=== PATIENT | male | born 1950 | race Caucasian/White ===

== ENCOUNTER 2021-12-01 05:41 | Inpatient (IN) ==
--- NOTE | 2021-11-11 13:13 | PAT Medication Instructions ---
Medication Instructions Date of Service November 11, 2021 Home Medications acetaminophen 500 mg capsule 1,000 mg PO UD PRN cholecalciferol (vitamin D3) 125 mcg (5,000 unit) tablet (Vitamin D3) 125 mcg PO QAM cyanocobalamin (vitamin B-12) 500 mcg tablet (Vitamin B-12) 500 mcg PO QAM diltiazem HCl 180 mg capsule,24 hr,extended release 180 mg PO BID docusate sodium 100 mg capsule (Stool Softener) 100 mg PO BID hydrochlorothiazide 25 mg tablet 25 mg PO QAM lisinopril 5 mg tablet 5 mg PO BID metoprolol tartrate 50 mg tablet 50 mg PO BID naproxen sodium 220 mg capsule (Aleve) 220 mg PO UD PRN vitamin E 400 unit capsule 400 unit PO QAM ASK your surgeon for instructions naproxen sodium 220 mg capsule (Aleve) 220 mg PO UD PRN STOP taking 2 weeks before surgery (or as soon as possible if surgery is within 2 weeks) vitamin E 400 unit capsule 400 unit PO QAM DO NOT take the morning of surgery cholecalciferol (vitamin D3) 125 mcg (5,000 unit) tablet (Vitamin D3) 125 mcg PO QAM cyanocobalamin (vitamin B-12) 500 mcg tablet (Vitamin B-12) 500 mcg PO QAM docusate sodium 100 mg capsule (Stool Softener) 100 mg PO BID hydrochlorothiazide 25 mg tablet 25 mg PO QAM lisinopril 5 mg tablet 5 mg PO BID Take morning of surgery With a small sip of water, OTHERWISE NOTHING TO EAT OR DRINK AFTER MIDNIGHT: acetaminophen 500 mg capsule 1,000 mg PO UD PRN (okay to take up to 4 hours prior to surgery if needed) diltiazem HCl 180 mg capsule,24 hr,extended release 180 mg PO BID metoprolol tartrate 50 mg tablet 50 mg PO BID Take evening before surgery acetaminophen 500 mg capsule 1,000 mg PO UD PRN (if needed) diltiazem HCl 180 mg capsule,24 hr,extended release 180 mg PO BID docusate sodium 100 mg capsule (Stool Softener) 100 mg PO BID lisinopril 5 mg tablet 5 mg PO BID metoprolol tartrate 50 mg tablet 50 mg PO BID Other Notes If you have any questions please call us at [phone] or [phone] or or [phone]
--- NOTE | 2021-11-17 13:20 | Anesthesiology Consultation ---
Date of Service November 17, 2021 Assessment & Plan (1) Encounter for pre-operative examination: COVID screening: Per assessment on 11/17: No known COVID-19 positive contacts or current COVID-19 related symptoms. Travel screen negative. Patient vaccinated. Surgeon arranging preop COVID testing. Awaiting results. Chart Review Chart Review: Acceptable Risk for Surgery and Patient seen in Pre Admission Testing Teaching & Discussion Pre-Anesthesia Teaching/Discussion Notes: Instructed NPO after midnight before surgery,except medications with 15 cc of water. Medication instructions pro vided according to the PAT guidelines. History Surgery Operation Date: 12/01/21 07:45 Proposed Procedures p L2-L5 Decompression Fusion, Spinal Cord Monitoring - Abdi Wayne DO Height/Weight Height: 5 ft 9 in Weight: 104.4 kg Allergies Allergy/AdvReac Type Severity Reaction Status Date / Time No Known Allergies Allergy Verified 11/04/21 10:36 Medications Home Medications Medication Instructions Recorded Confirmed Last Taken acetaminophen 500 mg capsule 1,000 mg PO UD PRN 11/04/21 11/04/21 Unknown cholecalciferol (vitamin D3) 125 125 mcg PO QAM 11/04/21 11/04/21 Unknown mcg (5,000 unit) tablet (Vitamin D3) cyanocobalamin (vitamin B-12) 500 500 mcg PO QAM 11/04/21 11/04/21 Unknown mcg tablet (Vitamin B-12) diltiazem HCl 180 mg capsule,24 180 mg PO BID 11/04/21 11/04/21 Unknown hr,extended release docusate sodium 100 mg capsule 100 mg PO BID 11/04/21 11/04/21 Unknown (Stool Softener) hydrochlorothiazide 25 mg tablet 25 mg PO QAM 11/04/21 11/04/21 Unknown lisinopril 5 mg tablet 5 mg PO BID 11/04/21 11/04/21 Unknown metoprolol tartrate 50 mg tablet 50 mg PO BID 11/04/21 11/04/21 Unknown naproxen sodium 220 mg capsule 220 mg PO UD PRN 11/04/21 11/04/21 Unknown (Aleve) vitamin E 400 unit capsule 400 unit PO QAM 11/04/21 11/04/21 Unknown Past Medical History Medical History Aortic aneurysm 4.3cm stable ascending aorta aneurysm per 09/04/21 CTS COPD (chronic obstructive pulmonary disease) Stable History of COVID-19 07/2021 > resolved History of prostate cancer 3+ years ago, hx prostatectomy/radiation/lupron HTN (hypertension) Multiple sclerosis Dx 20 years ago "Mild" > affects Left leg with weakness, fatigue Scoliosis Spinal stenosis Exercise / Class Metabolic Activity II 4-5 Yardwork/Stairs/Walk up hill Past Surgical History Surgical History History of appendectomy History of arthroscopy of right knee History of colonoscopy History of neck surgery BENIGN TUMOR REMOVED History of prostatectomy History of tonsillectomy Past Anesthesia History No Hx of Anesthesia Complications and No Family Hx of Anesthesia Complications History of PONV No Hx of PONV and Hx of Motion Sickness Social History Smoking Status: Current every day smoker tobacco type: cigarettes Smoking cigarettes per day: < 9 cigs/day (trying to quit) Do You Dip or Chew Tobacco: No Hx Alcohol Use: Yes Alcohol type: wine and hard liquor alcohol intake frequency: a few times a month substance use type: does not use Review of Systems Patient denies chest pain, shortness of breath, dyspnea on exertion, fever, chills, cough, wheezing, palpitations. Physical Exam Vital Signs VITALS BP 139/80 P 60 TEMP 98.2 SP02 96%RA RESP 18 PHYSICAL Full cervical extension range of motion. Full TMJ range of motion. TMD 3 finger breaths Mallampati Score 3 Dentition: missing molars Lungs: clear throughout to auscultation Cardiac: regular rate and rhythm, no murmurs noted Spine: normal Carotid arteries: negative bruit Extremities: no edema Lab Results Anesthesia Preop Results Results Anesthesia Widget: WBC 7.72 K/uL (4.8-10.8) 11/17/21 Hgb 15.6 g/dL (14.0-18.0) 11/17/21 Hct 46.4 % (42-52) 11/17/21 Plt 199 K/uL (130-400) 11/17/21 Na 144 mmol/L (136-145) 11/17/21 K 4.0 mmol/L (3.5-5.1) 11/17/21 Cl 106 mmol/L (98-107) 11/17/21 CO2 31 mmol/L (21-32) 11/17/21 BUN 24 mg/dl (6-23) H 11/17/21 Creat 1.04 mg/dl (0.6-1.4) 11/17/21 Glucose Level 99 mg/dl (70-99(Fasting)) 11/17/21 PT 10.6 Seconds (9.0-12.0) 11/17/21 PTT 27.6 Seconds (21.0-31.0) 11/17/21 INR 1.0 (0.9-1.1) 11/17/21 Urine Color Yellow 11/17/21 Urine Appearance Clear (Clear) 11/17/21 Urine pH 7.0 (4.5-7.5) 11/17/21 Urine Specific Erin 1.023 (1.000-1.030) 11/17/21 Urine Protein Negative (Negative) 11/17/21 Urine Glucose (UA) Negative (Negative) 11/17/21 Urine Ketones Negative (Negative) 11/17/21 Urine Blood Negative (Negative) 11/17/21 Urine Nitrite Negative (Negative) 11/17/21 Urine Bilirubin Negative (Negative) 11/17/21 Urine Urobilinogen Negative (Negative) 11/17/21 Urine Leukocyte Esterase Negative (Negative) 11/17/21 Blood Type O Positive 11/17/21 Antibody Screen NEGATIVE 11/17/21 Testing Electrocardiogram Date: 11/17/21 NSR at 62bpm. Low voltage QRS. NS STA. Chest X-Ray Date: 11/17/21 FINDINGS: The cardiomediastinal and hilar silhouettes are within normal limits. Subcentimeter calcified granuloma of the left lung apex. No pneumothorax, pleural effusion, airspace consolidation or overt pulmonary edema. Mild linear scarring versus atelectasis of the lung bases. The lungs are mildly hyperinflated. Degenerative changes of the shoulders and spine. IMPRESSION: No acute process. Other Testing CT Thorax (09/04/21) 4.3 cm ascending Aorta unchanged from the previous exam. 6 mm calcified granuloma in the left upper lobe unchanged. 2 low-density lesions in the left lobe of the liver are unchanged previous exam.
[2021-12-01] MEDS ORDERED: GABAPENTIN 300 MG CAP PO SCH (06:00)
[2021-12-01] MEDS ORDERED: LR 15ML/HR IV SCH (06:00)
[2021-12-01] MEDS ORDERED: ACETAMINOPHEN 500 MG TAB PO SCH (06:00)
[2021-12-01] MEDS ORDERED: ceFAZolin 2000MG 2,000 MG/15 ML SYR IV SCH ×2 (06:00→17:15)
[2021-12-01] MEDS ORDERED: CeleBREX 200 MG CAP PO SCH (06:00)
[2021-12-01] MEDS ORDERED: MIDAZOLAM HCL 1 MG/ML 2ML VIAL ONE (06:54)
[2021-12-01] MEDS ORDERED: fentaNYL citrate 100 MCG/2 ML VIAL ONE (06:54)
[2021-12-01] MEDS ORDERED: KETAMINE 50 MG/5 ML SYRINGE ONE (06:54)
[2021-12-01] MEDS ORDERED: HYDROmorphone INJ 2 MG/ML SYR/VIAL ONE (06:55)
[2021-12-01] MEDS ORDERED: ATROPINE SULFATE 0.1 MG/ML 10ML SYR IV PRN (07:15)
[2021-12-01] MEDS ORDERED: fentaNYL citrate 100 MCG/2 ML VIAL IV PRN (07:15)
[2021-12-01] MEDS ORDERED: ONDANSETRON INJ 2 MG/ML 2 ML VIAL IV PRN ×2 (07:15→12:33)
[2021-12-01] MEDS ORDERED: ePHEDrine sulfate 50 MG/ML AMP IV PRN (07:15)
[2021-12-01] MEDS ORDERED: PROMETHAZINE HCL 6.25 MG in SODIUM CHLORIDE 0.9% 50 ML IV PRN (07:15)
[2021-12-01] MEDS ORDERED: ceFAZolin 330 MG/ML 1 GM VIAL ONE (07:29)
[2021-12-01] MEDS ORDERED: BUPIVACAINE/EPINEPHRINE 0.25% 1:200,000 30 ML VIAL ONE (07:29)
--- NOTE | 2021-12-01 07:34 | History & Physical Bridge Note ---
Date of Service December 01, 2021 History & Physical Bridge Note I have examined the patient, reviewed the History & Physical and in the interval since the performance of the History & Physical I have noted the following changes of clinical significance: no changes noted
--- NOTE | 2021-12-01 07:35 | History & Physical Report ---
Date of Service December 01, 2021 Assessment & Plan (1) Neurogenic claudication due to lumbar spinal stenosis: Plan: L2-L5 decompression and fusion History of Present Illness Chief Complaint: Back and bilateral leg pain Primary Care Provider: Rupa Goldsmith DO This is a 71-year-old male who presents with chronic persistent back and leg pain. Failing course of nonoperative care is here for surgical intervention. Allergies Allergy/AdvReac Type Severity Reaction Status Date / Time No Known Allergies Allergy Verified 12/01/21 06:23 Home Medications Medication Instructions Recorded Confirmed Type acetaminophen 500 mg capsule 1,000 mg PO UD PRN 11/04/21 12/01/21 History cholecalciferol (vitamin D3) 125 125 mcg PO QAM 11/04/21 12/01/21 History mcg (5,000 unit) tablet (Vitamin D3) cyanocobalamin (vitamin B-12) 500 500 mcg PO QAM 11/04/21 12/01/21 History mcg tablet (Vitamin B-12) diltiazem HCl 180 mg capsule,24 180 mg PO BID 11/04/21 12/01/21 History hr,extended release docusate sodium 100 mg capsule 100 mg PO BID 11/04/21 12/01/21 History (Stool Softener) hydrochlorothiazide 25 mg tablet 25 mg PO QAM 11/04/21 12/01/21 History lisinopril 5 mg tablet 5 mg PO BID 11/04/21 12/01/21 History metoprolol tartrate 50 mg tablet 50 mg PO BID 11/04/21 12/01/21 History naproxen sodium 220 mg capsule 220 mg PO UD PRN 11/04/21 12/01/21 History (Aleve) vitamin E 400 unit capsule 400 unit PO QAM 11/04/21 12/01/21 History Symbicort 160 mg INHALATION BID 12/01/21 12/01/21 History Past Med/Surg History Medical History Aortic aneurysm 4.3cm stable ascending aorta aneurysm per 09/04/21 CTS COPD (chronic obstructive pulmonary disease) Stable History of COVID-19 07/2021 > resolved History of prostate cancer 3+ years ago, hx prostatectomy/radiation/lupron HTN (hypertension) Multiple sclerosis Dx 20 years ago "Mild" > affects Left leg with weakness, fatigue Scoliosis Spinal stenosis Surgical History History of appendectomy History of arthroscopy of right knee History of colonoscopy History of neck surgery BENIGN TUMOR REMOVED History of prostatectomy History of tonsillectomy Social History (System 10/23/21 @ 09:15 by Yael Arnold) Smoking Status: Current every day smoker Cigarettes Per Day: < 9 cigs/day (trying to quit); Do You Dip or Chew Tobacco: No; Tobacco Cessation Education Requested by Patient: No Hx Alcohol Use: Yes Alcohol type: wine and hard liquor Preferred Language: Samoan Communication Ability: Effective Acid Plant Helper Required: No Beliefs That Will Affect Care: None Current Living Situation: Spouse Other Information That Helps Us Care for You: No Feels Safe at Home: Yes Assistive Devices: Glasses Physical Exam Physical Exam: Patient is alert and oriented Heart regular in rhythm Lungs clear Results & Data Results & Data ([facility]) Vital Signs (Past 12 Hours) Vital Signs Temp Pulse Resp BP Pulse Ox 12/01/21 06:28 37 C 62 18 138/85 96
[2021-12-01] MEDS ORDERED: FLOSEAL HEMOSTATIC MATRIX 10ML TOP ONE (08:22)
[2021-12-01] MEDS ORDERED: ONDANSETRON INJ 2 MG/ML 2 ML VIAL ONE (08:46)
[2021-12-01] MEDS ORDERED: GLYCOPYRROLATE 0.2 MG/ML VIAL ONE (08:46)
[2021-12-01] MEDS ORDERED: ROCURONIUM BROMIDE 10 MG/ML 5 ML VIAL IV ONE (08:46)
[2021-12-01] MEDS ORDERED: DEXAMETHASONE SOD INJ 4 MG/ML VIAL ONE (08:46)
[2021-12-01] MEDS ORDERED: SUGAMMADEX SODIUM 200 MG/2 ML VIAL IV ONE (10:10)
[2021-12-01] MEDS ORDERED: PHENYLEPHRINE 100MCG/ML 5ML SYR ONE (11:02)
[2021-12-01] MEDS ORDERED: ePHEDrine sulfate 50 MG/ML SYR ONE (11:02)
--- NOTE | 2021-12-01 11:13 | Operative Report ---
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 #2 posterior spinal fusion L2-S1. #3 placement posterior segmental instrumentation L2-S1. #4 interbody fusion L3-L4, L4-5 and L5-S1. #5 placement of Spira 12 x 26 mm cage at L3-L4, 13 x 26 mm cage at L for L5 and 13 x 26 mm cage at L5-S1. #5 placement of I factor combined with V toss in the interbody space and posterior lateral gutters. #6 placement locally harvested morselized autograft in the posterior lateral gutters. Surgeon Abdi Wayne, DO Body Former Sharyn Lee Estimated Blood Loss 800 Findings See Below The patient is 5 foot 9 inches tall weighing over 104 kg with a BMI in excess of 33. This combined with an EBL of greater than 800 cc created significant technical difficulty required deepest retractors longus instruments in order to perform his procedure this at least 50% increased operative time. Specimens None Indications This is a 71-year-old male who presents with above-mentioned diagnosis after failing since course of nonoperative care is here for surgical invention. Description of Procedure Patient was met with identified informed consent obtained. Patient was then taken to the operative suite underwent a patient placed in a prone position on the Jean Paul table on top of the Alireza frame. All bony prominences well-padded eyes inspected to ensure no external pressure placed upon them. This point the lumbar spine was prepped and draped in normal sterile fashion. Sharp dissection with the assistance of Bovie cautery performed down to and exposing the lamina and transverse processes of L to L3-L4-L5. Upon explanation of the 5 level I appreciated bilateral pars defect and gross instability the lamina. Subsequently extended the exposure to include the sacral ala bilaterally. Elected to stabilize this level. I then performed complete laminectomy of L5 L4 L3 and L2 including bilateral medial facetectomies and foraminotomies addressing severe spinal stenosis. Pedicle screws were then placed in L2 L3-L4-L5 and S1 levels bilaterally with assistance of fluoroscopy the proper sized rodo placed. By way of entrance foraminal approach on the left complete discectomy of L5-S1 was performed endplates curetted to subcortical bleeding bone and a 13 x 26 mm Spira cage with I factor tapped in position. Then proceeded to L [address] again by way of a transforaminal approach and left complete discectomy performed endplates curetted to subcortical bleeding bone and again a 13 x 26 mm spiral cage with I factor tapped into position. Lastly proceeded to L3-L4 and again by way of a transforaminal approach and left complete discectomy performed endplates curetted to subcortically bone and a 12 x 26 mm spiral cage with I factor tapped in position. Rods were then locked into final position bilaterally. The transverse processes of L2-L3 L4-5 and sacral ala burred to subcortical bleeding bone. I factor combined with V toss and locally harvested morselized autograft was then placed in the posterior gutters. 15 round JENIFER drain inserted. The incision was then closed with 1 Vicryl to fascia 2-0 Vicryl subcutaneously and 4 Monocryl for final skin closure. Steri-Strip sterile dressings placed. Patient waken taken PACU stable condition. Please note spin al cord monitoring was utilized at the procedure no changes noted. Lastly Sharyn Lee was present at the entire procedure involved the patient positioning complex portions of the surgery and final skin closure. I attest to the content of the Intraoperative Record and any orders documented therein. Any exceptions are noted below.
--- NOTE | 2021-12-01 11:26 | Fluoroscopy Report ---
FL lumbar spine 2-3V CLINICAL HISTORY: L2-L5 DECOMPRESSION/FUSION COMPARISON STUDY: None FLUOROSCOPY TIME: 52 seconds. FLUOROSCOPIC IMAGES: 3 FINDINGS: The patient is status post interpedicular screw and rodo fixation from L2 through S1. Disc s pacers are in place at L3-4, L4-5 and L5-S1. IMPRESSION: Status post internal fixation ACT 112: Negative or not required by law. Electronically signed by: Ilia Michael M.D. 12/01/2021 11:25 AM
[2021-12-01] MEDS ORDERED: ONDANSETRON 4 MG OD TAB PO PRN (12:33)
[2021-12-01] MEDS ORDERED: METOCLOPRAMIDE HCL INJ 5 MG/ML 2 ML VIAL IV PRN (12:33)
[2021-12-01] MEDS ORDERED: ACETAMINOPHEN 500 MG TAB PO PRN (12:33)
[2021-12-01] MEDS ORDERED: traMADol HCL 50 MG TABLET PO PRN (12:33)
[2021-12-01] MEDS ORDERED: diphenhydrAMINE Capsule 25 MG CAP PO PRN (12:33)
[2021-12-01] MEDS ORDERED: FAMOTIDINE 20 MG TAB PO PRN (12:33)
[2021-12-01] MEDS ORDERED: HYDROmorphone INJ 1 MG/ML SYRINGE IV PRN (12:33)
[2021-12-01] MEDS ORDERED: LORazepam 0.5 MG TAB PO PRN (12:33)
[2021-12-01] MEDS ORDERED: SOD PHOSPHATE/SOD BIPHOSPHATE ENEMA 132 ML BTL PR PRN (12:33)
[2021-12-01] MEDS ORDERED: MAGNESIUM HYDROXIDE SUSP 30 ML UDC PO PRN (12:33)
[2021-12-01] MEDS ORDERED: DO NOT ADMINISTER PNEUMOCOCCAL VACCINE PRN (12:33)
[2021-12-01] MEDS ORDERED: PROMETHAZINE HCL 12.5 MG in SODIUM CHLORIDE 0.9% 50 ML IV PRN (12:33)
[2021-12-01] MEDS ORDERED: NALOXONE HCL 0.4 MG/1 ML VIAL/CARP IV PRN (12:33)
[2021-12-01] MEDS ORDERED: ACETAMINOPHEN 1,000 MG/100 ML VIAL IV PRN (12:33)
[2021-12-01] MEDS ORDERED: DO NOT ADMINISTER FLU VACCINE PRN (12:33)
[2021-12-01] MEDS ORDERED: ALUMINUM/MAGNESIUM SUSP 30 ML UDC PO PRN (12:33)
[2021-12-01] MEDS ORDERED: LORazepam 2 MG/1 ML VIAL IV PRN (12:33)
[2021-12-01] MEDS ORDERED: bisacodyL 10 MG SUPP PR PRN (12:33)
[2021-12-01] MEDS ORDERED: hydrOXYzine HCl 25 MG TAB PO PRN (12:33)
[2021-12-01] MEDS ORDERED: ALBUT/IPRATROP 3MG/0.5MG NEB 3 ML VIAL NEB PRN (13:32)
--- NOTE | 2021-12-01 13:45 | Consultation ---
Date of Consultation December 01, 2021 Assessment & Plan (1) Neurogenic claudication due to lumbar spinal stenosis: (2) COPD (chronic obstructive pulmonary disease): (3) HTN (hypertension): This is a 71-year-old male who has significant past medical history of HTN, history of MS currently in remission, COPD, history of COVID-19, hx of prostate cancer status post prostatectomy, tobacco abuse who presents for elective lumbar procedure by Dr. Wayne. Neurogenic claudication due to lumbar spinal stenosis Status post L2-L5 lumbar decompression fusion, POD #[address] Wayne EBL 800 mL, JENIFER drain 50 mL Tolerated procedure well Pain/wound management per orthopedics Activity and therapy as directed by orthopedics Encourage incentive spirometry and wean oxygen as able Monitor hemoglobin secondary to blood loss, preoperative hemoglobin 15.6 HTN Postoperative BP 129/87 On metoprolol, diltiazem, lisinopril and HCTZ Will place hold parameters Hold HCTZ until reevaluated in a.m. COPD No acute exacerbation Continue Symbicort, and as needed DuoNeb Tobacco abuse Encourage cessation Declines nicotine patch History of prostate cancer status post surgery History of MS Diagnosed over 20 years ago Currently not receiving treatment, does not follow neurology Aortic Aneurysm 4.2cm Ascending aortic aneurysm followed by pcp DVT ppx: SCD/TEDS Dispo: per primary PCP: Rupa Goldsmith FULL CODE Pt was seen and examined in collaboration with Dr. Ramos, please see addendum Thank you for this consultation. We will follow the patient with you during their hospital stay. You can reach a member of the [facility] Hospitalist Team 01/02 via hospitalist role on tiger text. Supervising Physician Co-Signing Physician Notes Attending addendum: The patient was seen and examined in medical floor. He is a status post L2-L5 decompression fusion for neurogenic claudication due to spinal stenosis He has back pain and numbness involving that area but denies any other significant symptoms Remains hemodynamically stable On examination No apparent distress at rest but remains drowsy following surgery Hemodynamically stable Chest-clear to auscultate bilaterally Heart-S1, S2 regular. No murmur appreciated Abdomenbenign Extremitiesno edema CNSalert and awake, a little drowsy secondary to medications and surgery His preoperative labs, EKG and imaging studies reviewed He is status post L2-5 decompression fusion with medical conditions as mentioned earlier Remains stable following surgery Agree with assessment and plan as outlined above by Oneyda Ramos History of Present Illness Requesting Physician: Dr. Wayne Reason for Consultation: Postop medical management Attending Physician: Abdi Wayne DO History of Present Illness This is a 71-year-old male who has significant past medical history of HTN, history of MS currently in remission, COPD, history of COVID-19, hx of prostate cancer status post prostatectomy, tobacco abuse who presents for elective lumbar procedure by Dr. Wayne. He underwent L2-L5 lumbar decompression fusion with estimated blood loss 800 mL. He tolerated the procedure well. Prior to procedure he was experiencing significant low back pain with bilateral leg pain, right greater than left. He failed a course of nonoperative management. Postoperatively he offers no complaints, but continues to be drowsy secondary to anesthesia. He denies any fever, chills, sweats, lightheadedness, dizziness, chest pain, shortness of breath, nausea, vomiting, abdominal pain. He currently has Spence catheter in place. Patient with history of hypertension controlled on oral antihypertensives including HCTZ, lisinopril, metoprolol and diltiazem. He last took metoprolol and diltiazem this morning. He also has history of MS currently not undergoing any treatment. He states he does not follow with a neurologist regularly. He does have history of COPD secondary to tobacco abuse. Currently this is under control on maintenance Symbicort. He has not required any [place]. He does continue to smoke half a pack a day. Allergies Allergy/AdvReac Type Severity Reaction Status Date / Time No Known Allergies Allergy Verified 12/01/21 06:23 Home Medications Medication Instructions Recorded Confirmed Type acetaminophen 500 mg capsule 1,000 mg PO UD PRN 11/04/21 12/01/21 History cholecalciferol (vitamin D3) 125 125 mcg PO QAM 11/04/21 12/01/21 History mcg (5,000 unit) tablet (Vitamin D3) cyanocobalamin (vitamin B-12) 500 500 mcg PO QAM 11/04/21 12/01/21 History mcg tablet (Vitamin B-12) diltiazem HCl 180 mg capsule,24 180 mg PO BID 11/04/21 12/01/21 History hr,extended release docusate sodium 100 mg capsule 100 mg PO BID 11/04/21 12/01/21 History (Stool Softener) hydrochlorothiazide 25 mg tablet 25 mg PO QAM 11/04/21 12/01/21 History lisinopril 5 mg tablet 5 mg PO BID 11/04/21 12/01/21 History metoprolol tartrate 50 mg tablet 50 mg PO BID 11/04/21 12/01/21 History naproxen sodium 220 mg capsule 220 mg PO UD PRN 11/04/21 12/01/21 History (Aleve) vitamin E 400 unit capsule 400 unit PO QAM 11/04/21 12/01/21 History Symbicort 160 mg INHALATION BID 12/01/21 12/01/21 History Patient History Medical History (Updated 12/01/21 @ 13:39 by Oneyda Burgess PA-C) Aortic aneurysm 4.3cm stable ascending aorta aneurysm per 09/04/21 CTS COPD (chronic obstructive pulmonary disease) Stable History of COVID-19 07/2021 > resolved History of prostate cancer 3+ years ago, hx prostatectomy/radiation/lupron HTN (hypertension) Multiple sclerosis Dx 20 years ago "Mild" > affects Left leg with weakness, fatigue Scoliosis Spinal stenosis Surgical History History of appendectomy History of arthroscopy of right knee History of colonoscopy History of neck surgery BENIGN TUMOR REMOVED History of prostatectomy History of tonsillectomy Family History Denies family history of Heart disease Myocardial infarction Cancer Stroke Social History (Updated 12/01/21 @ 13:36 by Oneyda Burgess PA-C) Smoking Status: Current every day smoker Cigarettes Per Day: < 9 cigs/day (trying to quit); Do You Dip or Chew Tobacco: No; Tobacco Cessation Education Requested by Patient: No Hx Alcohol Use: Yes Alcohol type: wine and hard liquor Alcohol Intake Frequency: 2-4 x/Month Preferred Language: Azeri Communication Ability: Effective Trade [employer] Secretary Required: No Beliefs That Will Affect Care: None marital status: Current Living Situation: Spouse current occupational status: employed current occupation: Financial Retirement Plan Specialist at [employer] Other Information That Helps Us Care for You: No Feels Safe at Home: Yes Assistive Devices: Glasses Review of Systems Review of Systems: All systems reviewed & are unremarkable except as noted in HPI & below Physical Exam Physical Exam: Constitutional: WD/WN, vitals as above, NAD, drowsy, but answers all questions appropriately, sitting up in bed Head: Normocephalic, Atraumatic Eyes: PERRL, conjunctivae normal, anicteric sclerae ENMT: external ear and nose normal, oropharynx normal Neck: trachea midline, no thyromegaly normal visual inspection Respiratory: normal respiratory effort, lungs clear to auscultation, scant audible wheezing b/l upper lobes resolved with coughing, no rales, rhonchi. Normal insp/exp effort, no accessory muscle use Cardiovascular: RRR, no murmur, no edema, scds in place Vessels: no JVD or carotid bruit Chest: normal inspection of chest Abdomen: normal bowel sounds, soft, nontender, no hepatosplenomegaly Musculoskeletal: no cyanosis or clubbing, arom x4, lumbar dressing cdi with JENIFER drain Skin: no rashes, warm and dry normal turgor Neurologic: PERRL, EOMI, accommodation nl, no face palsy, no dysarthria CN's II-XI intact bilaterally and moves all extremities Psych: drowsy : Spence cath draining yellow urine Results & Data ([facility]) Vital Signs (Past 12 Hours) Vital Signs Temp Pulse Pulse Resp BP Pulse Ox 12/01/21 13:00 36.4 C L 57 L 16 129/87 98 12/01/21 12:15 62 17 112/72 95 12/01/21 12:05 36.1 C L 60 15 108/74 94 12/01/21 11:55 60 18 112/63 95 12/01/21 11:45 62 19 98/65 L 94 12/01/21 11:35 62 20 101/61 95 12/01/21 11:29 36.4 C L 81 20 108/71 96 12/01/21 06:28 37 C 62 18 138/85 96 Laboratory Results Preoperative lab work drawn on 11/17/2021 WBC 7.73, H&H 15.6 and 46.4, platelet 199, sodium 144, K4.0, BUN 24, creatinine 1.4, glucose 99 Urinalysis negative [id number] Diagnostic Findings Lumbar Spine X-Ray 12/01/21 07:00 FL lumbar spine 2-3V CLINICAL HISTORY: L2-L5 DECOMPRESSION/FUSION COMPARISON STUDY: None FLUOROSCOPY TIME: 52 seconds. FLUOROSCOPIC IMAGES: 3 FINDINGS: The patient is status post interpedicular screw and rodo fixation from L2 through S1. Disc spacers are in place at L3-4, L4-5 and L5-S1. IMPRESSION: Status post internal fixation ACT 112: Negative or not required by law. Electronically signed by: Ilia Michael M.D. 12/01/2021 11:25 AM Chest x-ray from 11/17/2021 showed no acute cardiopulmonary findings Medications Administered Current Inpatient Medications Acetaminophen (Acetaminophen 500 Mg Tab) 1,000 mg PO PREOP SHAMA Stop: 12/01/21 18:00 Last Admin: 12/01/21 06:15 Dose: 1,000 mg Documented by: Acetaminophen (Acetaminophen 500 Mg Tab) 1,000 mg PO Q8H PRN PRN Reason: MILD Pain Scale 1,2,3 & Pre PT Stop: 12/31/21 12:32 Al Hydrox/Mg Hydrox/Simethicone (Aluminum/Magnesium Susp 30 Ml Udc) 30 ml PO Q6H PRN PRN Reason: Dyspepsia Stop: 12/31/21 12:32 Albuterol (Albut/Ipratrop 3mg/0.5mg Neb 3 Ml Vial) 3 ml NEB Q4R PRN; Protocol PRN Reason: sob/wheezing Stop: 12/31/21 14:59 Bisacodyl (Bisacodyl 10 Mg Supp) 10 mg NH DAILY PRN PRN Reason: Constipation Stop: 12/31/21 12:32 Celecoxib (Celebrex 200 Mg Cap) 200 mg PO PREOP SHAAM Stop: 12/01/21 18:00 Last Admin: 12/01/21 06:15 Dose: 200 mg Documented by: Cyanocobalamin (Cyanocobalamin (B-12) 500 Mcg Tablet) 500 mcg PO QAM SHAMA Stop: 01/01/22 08:59 Diltiazem HCl (Diltiazem Er 180 Mg Capcr) 180 mg PO BID SHAMA Stop: 12/31/21 20:59 Diphenhydramine HCl (Diphenhydramine Capsule 25 Mg Cap) 25 mg PO Q6H PRN PRN Reason: Allergic Rhinitis/Insomnia Stop: 12/31/21 12:32 Famotidine (Famotidine 20 Mg Tab) 20 mg PO Q12H PRN PRN Reason: Dyspepsia Stop: 12/31/21 12:32 Fluticasone/Vilanterol (Fluticasone/Vilanterol 100/25mcg 14 Puffs/Inhaler) 1 puffs INH DAILY SHAMA; Protocol Stop: 01/01/22 08:59 Gabapentin (Gabapentin 300 Mg Cap) 300 mg PO PREOP SHAMA Stop: 12/01/21 18:00 Last Admin: 12/01/21 06:15 Dose: 300 mg Documented by: Hydrochlorothiazide (Hydrochlorothiazide 25 Mg Tab) 25 mg PO QAM SHAMA Stop: 01/01/22 08:59 Hydromorphone HCl (Hydromorphone Inj 0.5 Mg/0.5 Ml Syr) 0.5 mg IV Q3H PRN PRN Reason: MODERATE Pain (Scale 4,5,6) & Stop: 12/15/21 12:32 Hydromorphone HCl (Hydromorphone Inj 1 Mg/Ml Syringe) 1 mg IV Q3H PRN PRN Reason: SEVERE Pain (Scale 7,8,9,10) Stop: 12/15/21 12:32 Hydroxyzine HCl (Hydroxyzine Hcl 25 Mg Tab) 25 mg PO Q8H PRN PRN Reason: Anxiety Stop: 12/31/21 12:32 Cefazolin Sodium (Ancef 2000mg) 2,000 mg in 15 mls @ 3.75 mls/min IV PREOP SHAMA; Protocol Stop: 12/01/21 18:00 Last Admin: 12/01/21 07:43 Dose: 3.75 mls/min Documented by: Lactated Ringer's (Lr) 1,000 mls @ 15 mls/hr IV .Q24H SHAMA Stop: 12/02/21 05:59 Last Infusion: 12/01/21 07:46 Dose: Infused Documented by: Sodium Chloride (Nss 1000ml) 1,000 mls @ 150 mls/hr IV .Q6H40M SHAMA Stop: 12/31/21 12:32 Promethazine HCl 12.5 mg/ (Sodium Chloride) 50.5 mls @ 202 mls/hr IV Q6H PRN PRN Reason: Nausea &/or Vomiting Stop: 12/31/21 12:32 Acetaminophen (Ofirmev) 1,000 mg in 100 mls @ 400 mls/hr IV Q8H PRN PRN Reason: Pain Rating 1-3 & Pre PT Stop: 12/04/21 12:32 Dexamethasone 6 mg/ Syringe 1.5 mls @ 1 mls/min IV DAILY SHAMA Stop: 12/04/21 09:02 Cefazolin Sodium (Ancef 2000mg) 2,000 mg in 15 mls @ 3.75 mls/min IV Q8H SHAMA; Protocol Stop: 12/02/21 01:03 Influenza Virus Vaccine Quadrival (Do Not Administer Flu Vaccine) 1 ea N/A PRN PRN PRN Reason: Notification Stop: 12/31/21 12:32 Lisinopril (Lisinopril 5 Mg Tab) 5 mg PO BID COUNTS INCLUDE 234 BEDS AT THE [facility] Stop: 12/31/21 20:59 Lorazepam (Lorazepam 0.5 Mg Tab) 0.5 mg PO Q8H PRN PRN Reason: Sedation/Anxiety Stop: 12/31/21 12:32 Lorazepam (Lorazepam 2 Mg/1 Ml Vial) 0.5 mg IV Q8H PRN PRN Reason: Sedation/Anxiety Stop: 12/31/21 12:32 Magnesium Hydroxide (Magnesium Hydroxide Susp 30 Ml Udc) 30 ml PO Q24H PRN PRN Reason: Constipation Stop: 12/31/21 12:32 Metoclopramide HCl (Metoclopramide Hcl Inj 5 Mg/Ml 2 Ml Vial) 10 mg IV Q6H PRN PRN Reason: Nausea &/or Vomiting Stop: 12/31/21 12:32 Metoprolol Tartrate (Metoprolol Tartrate 50 Mg Tab) 50 mg PO BID COUNTS INCLUDE 234 BEDS AT THE [facility] Stop: 12/31/21 20:59 Naloxone HCl (Naloxone Hcl 0.4 Mg/1 Ml Vial/Carp) 0.1 mg IV Q5M PRN PRN Reason: Oversedation/Resp depression Stop: 12/31/21 12:32 Ondansetron HCl (Ondansetron Inj 2 Mg/Ml 2 Ml Vial) 4 mg IV Q6H PRN PRN Reason: Nausea &/or Vomiting Stop: 12/31/21 12:32 Ondansetron HCl (Ondansetron 4 Mg Od Tab) 4 mg PO Q6H PRN PRN Reason: Nausea Stop: 12/31/21 12:32 Oxycodone HCl (Oxycodone Hcl Ir 5 Mg Tab (Immediate Release)) 5 - 10 mg PO Q4H PRN PRN Reason: Pain & Pre PT Stop: 12/15/21 12:32 Pneumococcal Polyvalent Vaccine (Do Not Administer Pneumococcal Vaccine) 1 ea N/A PRN PRN PRN Reason: Notification Stop: 12/31/21 12:32 Polyethylene Glycol (Polyethylene (Miralax) 17 Gm Pack) 17 gm PO Q6 SHAMA Stop: 01/01/22 05:59 Senna/Docusate Sodium (Docusate Sodium/Senna 50/8.6mg Tab) 2 tab PO HS SHAMA Stop: 12/31/21 20:59 Sodium Biphosphate/Sodium Phosphate (Sod Phosphate/Sod Biphosphate Enema 132 Ml Btl) 132 ml NH ONE PRN PRN Reason: Constipation Stop: 12/31/21 12:32 Tramadol HCl (Tramadol Hcl 50 Mg Tablet) 50 - 100 mg PO Q4H PRN PRN Reason: Moderate-Severe pain & Pre PT Stop: 12/31/21 12:32 Vitamin D (Cholecalciferol 5,000 Units 125 Mcg Tab) 5,000 units PO QAM COUNTS INCLUDE 234 BEDS AT THE [facility] Stop: 01/01/22 08:59 Vitamin E (Tocopheryl, Dl-Alpha 400 Units 180 Mg Cap) 400 units PO QAM COUNTS INCLUDE 234 BEDS AT THE [facility] Stop: 01/01/22 08:59 ECG Rate (beats per minute): 62 Rhythm: normal sinus Additional Comments: QTC 466 MS
[2021-12-01] MEDS: SODIUM CHLORIDE 0.9% 1000ML 1,000 ML IV SCH ×2 (14:06→20:42)
--- NOTE | 2021-12-01 14:17 | Anesthesiology Progress Note ---
Date of Service December 01, 2021 Anesthesia Post Procedure Vital Signs Vital Signs: Temp Pulse Pulse Resp BP Pulse Ox 12/01/21 13:00 36.4 C L 57 L 16 129/87 98 12/01/21 12:30 36.4 C L 59 L 14 124/60 99 12/01/21 12:15 62 17 112/72 95 12/01/21 12:05 36.1 C L 60 15 108/74 94 12/01/21 11:55 60 18 112/63 95 12/01/21 11:45 62 19 98/65 L 94 12/01/21 11:35 62 20 101/61 95 12/01/21 11:29 36.4 C L 81 20 108/71 96 12/01/21 06:28 37 C 62 18 138/85 96 Pain Intensity Lower Back: Pain Intensity: 5 Transfer of Care Handoff Completed per policy Notes Mental Status: alert / awake / arousable Patient Amnestic to Procedure: Yes Nausea / Vomiting: adequately controlled Pain: adequately controlled Airway Patency, RR, SpO2: stable & adequate BP & HR: stable & adequate Hydration State: stable & adequate Anesthetic Complications: no major complications apparent
[2021-12-01] MEDS: oxyCODONE HCL IR 5 MG TAB (IMMEDIATE RELEASE) PO PRN (15:42)
[2021-12-01] MEDS: ceFAZolin 2000MG 2,000 MG/15 ML SYR IV SCH (17:13)
[2021-12-01] MEDS: HYDROmorphone INJ 0.5 MG/0.5 ML SYR IV PRN (19:43)
[2021-12-01] MEDS: dilTIAZem ER 180 MG CAPCR PO SCH (19:52)
[2021-12-01] MEDS: DOCUSATE SODIUM/SENNA 50/8.6MG TAB PO SCH (19:52)
[2021-12-01] MEDS: METOPROLOL TARTRATE 50 MG TAB PO SCH (19:53)
[2021-12-01] MEDS: lisinopril 5 MG TAB PO SCH (19:54)
[2021-12-02] MEDS: ceFAZolin 2000MG 2,000 MG/15 ML SYR IV SCH (01:58)
[2021-12-02] MEDS: SODIUM CHLORIDE 0.9% 1000ML 1,000 ML IV SCH (03:19)
[2021-12-02] MEDS: HYDROmorphone INJ 0.5 MG/0.5 ML SYR IV PRN ×2 (03:21→20:24)
[2021-12-02] MEDS: POLYETHYLENE (MIRALAX) 17 GM PACK PO SCH ×3 (05:57→17:59)
[2021-12-02 08:31] LABS: Basophils # (auto) 0.02 K/uL (0-0.2); Basophils % (auto) 0.1 %; Eosinophils # (auto) 0.01 K/uL (0-0.5); Eosinophils % (auto) 0.1 %; Hematocrit (blood only) 38.2 % (42-52); Hemoglobin 12.8 g/dL (14.0-18.0); Immature Granulocytes # (auto) 0.03 K/uL (0.00-0.02); Immature Granulocytes % (auto) 0.2 %; Lymphocytes # (auto) 0.81 K/uL (1.2-3.4); Mean Corpuscular Hemoglobin 31.3 pg (25-34); Mean Corpuscular Hgb Conc 33.5 g/dL (32-36); Mean Corpuscular Volume 93.4 fL (80-100); Mean Platelet Volume 9.7 fL (7.4-10.4); Monocytes # (auto) 1.48 K/uL (0.11-0.59); Monocytes % (auto) 10.9 %; Neutrophils # (auto) 11.19 K/uL (1.4-6.5); Neutrophils % (auto) 82.7 %; Platelet Count 177 K/uL (130-400); RDW Coefficient of Variation 14.1 % (11.5-14.5); RDW Standard Deviation 48.2 fL (36.4-46.3); Red Blood Count 4.09 M/uL (4.7-6.1); White Blood Count 13.54 K/uL (4.8-10.8)
[2021-12-02] MEDS: FLUTICASONE/VILANTEROL 100/25MCG 14 PUFFS/INHALER INH SCH (08:39)
[2021-12-02] MEDS: lisinopril 5 MG TAB PO SCH ×2 (08:40→20:25)
[2021-12-02] MEDS: CHOLECALCIFEROL 5,000 UNITS 125 MCG TAB PO SCH (08:40)
[2021-12-02] MEDS: TOCOPHERYL, DL-ALPHA 400 UNITS 180 MG CAP PO SCH (08:40)
[2021-12-02] MEDS: METOPROLOL TARTRATE 50 MG TAB PO SCH ×2 (08:40→20:26)
[2021-12-02] MEDS: CYANOCOBALAMIN (B-12) 500 MCG TABLET PO SCH (08:40)
[2021-12-02] MEDS: dexAMETHasone 6 MG in SYRINGE 0 ML IV SCH (08:41)
[2021-12-02] MEDS: dilTIAZem ER 180 MG CAPCR PO SCH ×2 (08:41→20:24)
[2021-12-02 08:50] LABS: BUN Creatinine Ratio 25.6 (10-20); Calcium 8.3 mg/dl (8.5-10.1); Creatinine Clr Calc Pharmacy 96.4 ml/min; Est GFR (African American) 102.5 ml/min; Est GFR (Non-African American) 88.5 ml/min
[2021-12-02] MEDS ORDERED: hydroCHLOROthiazide 25 MG TAB PO SCH (09:00)
--- NOTE | 2021-12-02 09:31 | Orthopedic Progress Note ---
Date of Service December 02, 2021 Assessment & Plan (1) Neurogenic claudication due to lumbar spinal stenosis: Plan: We will initiate physical therapy this morning monitor his JENIFER output hopefully discharge home in the next few days. Admission and Anticipated Discharge Date Admission Date: December 01, 2021 Subjective Back pain controlled leg symptoms improved Physical Exam Physical Exam: Patient is in the chair at the bedside. Skin strength testing. Appears comfortable. Results & Data ([facility]) Vital Signs (Past 12 Hours) Vital Signs Temp Pulse Resp BP Pulse Ox 12/02/21 08:42 62 12/02/21 07:40 36.5 C 59 L 16 117/75 96 12/02/21 03:57 36.4 C L 62 18 125/81 95 12/01/21 23:29 36.4 C L 68 18 134/80 97
[2021-12-02] MEDS: oxyCODONE HCL IR 5 MG TAB (IMMEDIATE RELEASE) PO PRN (12:52)
--- NOTE | 2021-12-02 14:48 | Hospitalist Progress Note ---
Date of Service December 02, 2021 Assessment & Plan (1) Neurogenic claudication due to lumbar spinal stenosis: (2) COPD (chronic obstructive pulmonary disease): (3) HTN (hypertension): Plan: Patient is a 71 yr old male with H/O HTN, history of MS currently in remission, COPD, history of COVID-19, hx of prostate cancer status post prostatectomy, tobacco abuse who presents for elective lumbar procedure by Dr. Wayne. Lumbar spinal stenosis with Neurogenic claudication S/P L2-L5 lumbar decompression fusion, POD #[address] Wayne Acute post operative blood loss anemia Pain control, wound Care, activity as per Primary team Appreciate Orthopedics Input Incentive Spirometry Bowel regimen to prevent constipation Monitor CBC DVT prophylaxis per primary team HTN BP Stable On metoprolol, diltiazem, lisinopril and HCTZ Hold HCTZ for now COPD No acute exacerbation Continue Symbicort, and as needed DuoNeb Tobacco abuse Encourage cessation Declines nicotine patch H/O Prostate cancer S/P Surgery H/O MS Diagnosed over 20 years ago Currently not on meds Aortic Aneurysm 4.2cm Ascending aortic aneurysm Follow up as outpatient DVT Px: SCD/TEDS Code Status Full Code Admission and Anticipated Discharge Date Admission Date: December 01, 2021 Subjective Patient is seen and examined bedside Back pain is controlled + Flatus, no bowel movement Denies any chest pain, shortness of breath, dizziness, nausea, abdominal pain Offers no other complaints Review of Systems Review of Systems: All systems reviewed & are unremarkable except as noted in Subjective Physical Exam Physical Exam: Physical Exam: Vitals signs as noted above General Appearance:Obese, no apparent distress Head: normocephalic, Atraumatic Eyes: normal inspection, EOMI Neck: supple, Trachea midline Respiratory/Chest: Normal breath sounds, CTA, No accessory muscle use Cardiovascular: S1, S2, No murmur Abdomen/GI:Soft, Non tender, Bowel sounds present Back: Surgical Site in dressing Extremities/Musculoskeletal:normal inspection, 1+ B/L edema Neurologic/Psych:AAOX3, grossly no focal neurological deficits Skin: normal color, warm Results & Data Results & Data ([facility]) Vital Signs (Past 12 Hours) Vital Signs Temp Pulse Resp BP Pulse Ox 12/02/21 08:42 62 12/02/21 07:40 36.5 C 59 L 16 117/75 96 12/02/21 03:57 36.4 C L 62 18 125/81 95 Laboratory Results Short CBC 12/02/21 Range/Units 08:10 WBC 13.54 H (4.8-10.8) K/uL Hgb 12.8 L (14.0-18.0) g/dL Hct 38.2 L (42-52) % Plt Count 177 (130-400) K/uL BMP 12/02/21 08:10 Sodium 137 Potassium 4.0 Chloride 105 Carbon Dioxide 26 BUN 22 Creatinine 0.86 Glucose 110 H Calcium 8.3 L
[2021-12-02] MEDS: DOCUSATE SODIUM/SENNA 50/8.6MG TAB PO SCH (20:25)
[2021-12-03] MEDS: POLYETHYLENE (MIRALAX) 17 GM PACK PO SCH ×4 (00:49→17:33)
[2021-12-03] MEDS: FLUTICASONE/VILANTEROL 100/25MCG 14 PUFFS/INHALER INH SCH (08:01)
[2021-12-03] MEDS: dexAMETHasone 6 MG in SYRINGE 0 ML IV SCH (08:01)
[2021-12-03] MEDS: oxyCODONE HCL IR 5 MG TAB (IMMEDIATE RELEASE) PO PRN ×2 (08:02→17:35)
[2021-12-03] MEDS: lisinopril 5 MG TAB PO SCH ×2 (08:03→20:34)
[2021-12-03] MEDS: dilTIAZem ER 180 MG CAPCR PO SCH ×2 (08:03→20:34)
[2021-12-03] MEDS: METOPROLOL TARTRATE 50 MG TAB PO SCH ×2 (08:04→20:35)
[2021-12-03] MEDS: TOCOPHERYL, DL-ALPHA 400 UNITS 180 MG CAP PO SCH (08:04)
[2021-12-03] MEDS: CHOLECALCIFEROL 5,000 UNITS 125 MCG TAB PO SCH (08:04)
[2021-12-03] MEDS: CYANOCOBALAMIN (B-12) 500 MCG TABLET PO SCH (08:04)
[2021-12-03 09:15] LABS: Basophils # (auto) 0.01 K/uL (0-0.2); Basophils % (auto) 0.1 %; Hematocrit (blood only) 35.7 % (42-52); Hemoglobin 12.1 g/dL (14.0-18.0); Immature Granulocytes # (auto) 0.08 K/uL (0.00-0.02); Immature Granulocytes % (auto) 0.5 %; Lymphocytes # (auto) 0.93 K/uL (1.2-3.4); Lymphocytes % (auto) 6.3 %; Mean Corpuscular Hemoglobin 31.8 pg (25-34); Mean Corpuscular Hgb Conc 33.9 g/dL (32-36); Mean Corpuscular Volume 93.9 fL (80-100); Mean Platelet Volume 10.3 fL (7.4-10.4); Monocytes # (auto) 1.46 K/uL (0.11-0.59); Monocytes % (auto) 9.9 %; Neutrophils % (auto) 83.2 %; Platelet Count 177 K/uL (130-400); RDW Coefficient of Variation 14.1 % (11.5-14.5); RDW Standard Deviation 48.6 fL (36.4-46.3); White Blood Count 14.68 K/uL (4.8-10.8)
[2021-12-03 09:34] LABS: BUN Creatinine Ratio 28.9 (10-20); Calcium 8.5 mg/dl (8.5-10.1); Creatinine Clr Calc Pharmacy 99.9 ml/min; Est GFR (African American) 104.1 ml/min; Est GFR (Non-African American) 89.8 ml/min; Potassium 3.7 mmol/L (3.5-5.1)
--- NOTE | 2021-12-03 10:21 | Orthopedic Progress Note ---
Date of Service December 03, 2021 Assessment & Plan (1) Neurogenic claudication due to lumbar spinal stenosis: Plan: This he will continue physical therapy monitor his JENIFER output hopefully discharge home tomorrow. Admission and Anticipated Discharge Date Admission Date: December 01, 2021 Subjective Back pain controlled leg symptoms improved Physical Exam Physical Exam: Patient in the chair at the bedside. Is good strength testing. Appears comfortable. Results & Data ([facility]) Vital Signs (Past 12 Hours) Vital Signs Temp Pulse Resp BP Pulse Ox 12/03/21 08:05 62 12/03/21 07:49 36.4 C L 57 L 16 130/84 92 12/03/21 03:39 55 L 18 92
--- NOTE | 2021-12-03 17:45 | Hospitalist Progress Note ---
Date of Service December 03, 2021 Assessment & Plan (1) Neurogenic claudication due to lumbar spinal stenosis: (2) COPD (chronic obstructive pulmonary disease): (3) HTN (hypertension): Plan: per Dr. Mooney's notes with addendum: Patient is a 71 yr old male with H/O HTN, history of MS currently in remission, COPD, history of COVID-19, hx of prostate cancer status post prostatectomy, tobacco abuse who presents for elective lumbar procedure by Dr. Wayne. Lumbar spinal stenosis with Neurogenic claudication S/P L2-L5 lumbar decompression fusion, POD #[address] Wayne Acute post operative blood loss anemia HG stable at 12 --> 12 doing fine overall DVT prophylaxis per primary team HTN BP Stable On metoprolol, diltiazem, lisinopril and HCTZ Hold HCTZ for now COPD No acute exacerbation Continue Symbicort, and as needed DuoNeb Tobacco abuse Encourage cessation Declines nicotine patch H/O Prostate cancer S/P Surgery H/O MS Diagnosed over 20 years ago Currently not on meds Aortic Aneurysm 4.2cm Ascending aortic aneurysm Follow up as outpatient DVT Px: SCD/TEDS Code Status Full Code Thank you for this consultation. We will follow the patient with you during their hospital stay. You [facility] via pager @ [phone]. Admission and Anticipated Discharge Date Admission Date: December 01, 2021 Subjective ff up for s/p lumbar spine surgery, etc seen resting in bed, sitting up comfortable states he feels fine overall minimal back pain no leg weakness doing ok with ambulation no chest pain, dyspnea, palpitations, dizziness no other symptoms Review of Systems Review of Systems: all noted and negative except for above Physical Exam Physical Exam: General- oriented x 3, not in distress, speaks in sentences with no effort or accessory muscle use Eyes- anicteric Neck- no JVD Lungs- clear breath sounds bilaterally, no rales/wheezes Heart- normal rate, regular rhythm; no murmurs Abdomen- normal bowel sounds, nondistended, soft, nontender Extremities- no pretibial edema, no calf tenderness Neuro- alert, oriented x 3; no gross focal neurologic deficits Skin- warm & dry Results & Data Results & Data ([facility]) Vital Signs (Past 12 Hours) Vital Signs Temp Pulse Resp BP Pulse Ox 12/03/21 15:44 36.7 C 61 16 124/75 93 12/03/21 08:05 62 12/03/21 07:49 36.4 C L 57 L 16 130/84 92 all noted and reviewed including below
[2021-12-03] MEDS: DOCUSATE SODIUM/SENNA 50/8.6MG TAB PO SCH (20:34)
[2021-12-04] MEDS: POLYETHYLENE (MIRALAX) 17 GM PACK PO SCH ×3 (00:31→12:13)
[2021-12-04] MEDS: oxyCODONE HCL IR 5 MG TAB (IMMEDIATE RELEASE) PO PRN (04:24)
[2021-12-04] MEDS: CHOLECALCIFEROL 5,000 UNITS 125 MCG TAB PO SCH (07:38)
[2021-12-04] MEDS: FLUTICASONE/VILANTEROL 100/25MCG 14 PUFFS/INHALER INH SCH (07:38)
[2021-12-04] MEDS: lisinopril 5 MG TAB PO SCH (07:38)
[2021-12-04] MEDS: CYANOCOBALAMIN (B-12) 500 MCG TABLET PO SCH (07:38)
[2021-12-04] MEDS: dilTIAZem ER 180 MG CAPCR PO SCH (07:38)
[2021-12-04] MEDS: TOCOPHERYL, DL-ALPHA 400 UNITS 180 MG CAP PO SCH (07:38)
[2021-12-04] MEDS: dexAMETHasone 6 MG in SYRINGE 0 ML IV SCH (07:39)
[2021-12-04] MEDS: METOPROLOL TARTRATE 50 MG TAB PO SCH (07:39)
--- NOTE | 2021-12-04 09:51 | Discharge Summary ---
Date of Service December 04, 2021 Admission HPI Per Admitting Provider This is a 71-year-old male who presents with chronic persistent back and leg pain. Failing course of nonoperative care is here for surgical intervention. Admission Exam (Per Admitting) Constitutional well developed Eyes normal visual lockett by confrontation Neck normal visual inspection Respiratory normal respiratory effort Cardiovascular Extremities: normal capillary refill Gastrointestinal (Abdomen) Inspection/Auscultation: abdomen normal to inspection Musculoskeletal Extremities: extremities normal to inspection and strength 5/5 throughout Skin no rashes, warm and dry Neurologic normal touch/pain/proprioception and moves all extremities Psychiatric A+Ox3, euthymic affect Eye Contact: good eye contact Speech: normal rate/rhythm/volume of speech Discharge Data Consultations 12/01/21 12:33 Consult Hospitalist Routine Procedures Performed Operation Date: 12/01/21 07:45 Actual Procedures p L2-S1 Decompression and Fusion, Spinal Cord Monitoring(Not Applicable) - Abdi Wayne, DO Hospital Course (1) Neurogenic claudication due to lumbar spinal stenosis: Patient is being discharged home on postoperative day 3 status post L2-S1 decompression and fusion. He has had an uncomplicated postoperative course. Pain is been controlled. Lab values have been stable. He is making great progress in physical therapy. He is passing flatus and had a small bowel movement prior to discharge. Discharge Instructions ACTIVITY RECOMMENDATIONS: SELF CARE INSTRUCTIONS AFTER THORACIC/LUMBAR FUSIONS 1. You may walk to your tolerance. It is good exercise for your legs and back. Expect some back and intermittent leg aches and pains. 2. You may perform "counter-top" level activities (make a sandwich, kolton with a project, etc.). 3. No bending or lifting of more than 10 pounds or back twisting of any nature (roll like a log when turning in bed). 4. You may ride in a car for 20-30 minutes at a time. No driving until after your first visit with your doctor. 5. Frequent changes of position and restricting sitting to 30 minutes at a time will help limit the amount of back spasms and stiffness you may experience. 6. You may discontinue the use of ambulatory aids (cane, crutches, etc.) once your strength and confidence allow. 7. You may licensing services clerk the shower and let water strike your incision when you arrive home at least once daily. Do not take a tub bath, sit in a hot tub or go into a swimming pool until after your first recheck in the office. SPECIAL CARE INSTRUCTIONS: VERY IMPORTANT TO READ AND REVIEW A. Your surgical incision has been closed with a cosmetic suture under the skin that will dissolve in about 6 weeks. In 14 days, you can use a pair of clean scissors and cut the suture that is left outside of the skin at the ends of your incision. 1. The small skin tapes can be removed 7 days after surgery if they have not fallen off by that point. 2. You may keep the wound open to air as much as possible to promote healing after post-op day number 5 unless told otherwise by your doctor. 3. If you think the wound looks like it is becoming infected (redness or worsening drainage) and/or you are experiencing fever, chill or worsening back pain and muscle spasms, contact the office so that we may evaluate you as soon as possible. B. Complications are uncommon, but please contact us if you have any signs or symptoms of: 1. wound infection (fever higher than 102.5 degrees F, redness, separation of wound, drainage, or increasing pain from the incision) 2. blood clots in legs (pain, swelling, redness and warmth in legs) 3. urinary tract infection (fever higher than 102.5 degrees F, burning upon urination or increased frequency of urination) 4. nerve problems (inability to walk on your toes or heels, numbness, loss of bowel or bladder control) 5. any other symptoms that concern you C. Please call the office at if you have any concerns or questions about your operation or recovery. D. No smoking! Smoking drastically decreases the chance of a solid fusion. E. Do not take any anti-inflammatory medications (Indocin, Advil, Motrin, Aspirin, Naprosyn, etc.) as these may inhibit the chance of a solid fusion. Tylenol is okay to take for pain. MANAGING PAIN AFTER SPINAL SURGERY 1. Narcotic medication is intended for short-term use and will be provided for surgical pain. Surgical pain usually lasts for a period of 4-6 weeks. Narcotic medication includes Percocet, Vicodin, Darvocet, Tylenol #3 or Lortab. 2. Longer-term pain is more appropriately treated with non-narcotic medication such as Tylenol ES. 3. Muscle spasm is not appropriately treated with narcotics. Muscle relaxers such as Soma, Flexeril or Skelaxin can be used along with Tylenol ES. 4. Remember that we all live with some "aches and pains". This is not unusual or uncommon after an injury or as we get older. a. Back pain is expected and may include muscle spasms for 4 to 6 weeks after surgery. The pain should gradually improve. If the pain worsens for no apparent reason, please contact the office. b. Intermittent leg pain may also be experienced and should not be concerned about unless it worsens for no apparent reason. If so, please contact the office. 5. We will provide appropriate medication within the normal guidelines of their prescribed use. We will also be very cautious and aware of potential abuse and extended duration of patients' medication needs. a. Pain medications are for your comfort and to assist with sleep and rest so that the tissue can heal. They are not provided in order to return to normal activity and should not be used through the day. To do so or worsening pain at night can result from ongoing tissue damage and development of tolerance to the prescribed medicine. 6. Please allow 2-3 days to process refills. Prescriptions will not be mailed but must be picked up at the office. FOLLOW UP VISIT: Keep your scheduled follow-up appointment. Any questions, please call the office at .
--- NOTE | 2021-12-04 16:57 | Hospitalist Progress Note ---
Date of Service December 04, 2021 Assessment & Plan (1) Neurogenic claudication due to lumbar spinal stenosis: (2) COPD (chronic obstructive pulmonary disease): (3) HTN (hypertension): Plan: per Dr. Mooney's notes with addendum: Patient is a 71 yr old male with H/O HTN, history of MS currently in remission, COPD, history of COVID-19, hx of prostate cancer status post prostatectomy, tobacco abuse who presents for elective lumbar procedure by Dr. Wayne. Lumbar spinal stenosis with Neurogenic claudication S/P L2-L5 lumbar decompression fusion, POD #[address] Wayne Acute post operative blood loss anemia HG stable at 12 --> 12 Patient is stable overall DVT prophylaxis per primary team HTN BP Stable May resume metoprolol, diltiazem, lisinopril and HCTZ COPD No acute exacerbation Continue Symbicort, and as needed DuoNeb Tobacco abuse Encourage cessation Declines nicotine patch H/O Prostate cancer S/P Surgery H/O MS Diagnosed over 20 years ago Currently not on meds Aortic Aneurysm 4.2cm Ascending aortic aneurysm Follow up as outpatient DVT Px: SCD/TEDS Code Status Full Code Thank you for this consultation. We will follow the patient with you during their hospital stay. You can reach a [facility]/02 via pager @ [phone]. Admission and Anticipated Discharge Date Admission Date: December 01, 2021 Subjective Follow-up for status post lumbar spine surgery, etc. Seen resting in bedside chair, comfortable, not in distress, in good spirits States he feels fine overall Minimal back pain, no problems with ambulation no chest pain, dyspnea, palpitations, dizziness No other symptoms Review of Systems Review of Systems: all noted and negative except for above Physical Exam Physical Exam: General- oriented x 2, not in distress, speaks in sentences with no effort or accessory muscle use Eyes- anicteric Neck- no JVD Lungs- clear BS bilaterally, no crackles Heart- normal rate, regular rhythm; no murmurs Abdomen- normal BS, nondistended, soft, nontender Extremities- no pretibial edema, no calf tenderness Neuro- alert, oriented x 3; no gross focal neurologic deficits Skin- warm & dry Results & Data Results & Data ([facility]) Vital Signs (Past 12 Hours) Vital Signs Temp Pulse Resp BP Pulse Ox 12/04/21 10:01 36.5 C 66 18 130/72 95 12/04/21 07:32 36.5 C 55 L 18 130/72 95 all noted and reviewed including below
== END 2021-12-04 14:52 | disposition home or self-care (01) | DRG 454 ==
LOC: ASU 05:41 → 3E 11:17
DX: G89.29 Other chronic pain; F17.210 Nicotine dependence, cigarettes, uncomplicated; Z68.33 Body mass index [BMI] 33.0-33.9, adult; E66.9 Obesity, unspecified; D62 Acute posthemorrhagic anemia; M41.80 Other forms of scoliosis, site unspecified; J44.9 Chronic obstructive pulmonary disease, unspecified; Z90.49 Acquired absence of other specified parts of digestive tract; Z85.46 Personal history of malignant neoplasm of prostate; G35 Multiple sclerosis; I10 Essential (primary) hypertension; M43.07 Spondylolysis, lumbosacral region; I71.4 Abdominal aortic aneurysm, without rupture; Z90.79 Acquired absence of other genital organ(s); Z86.16 Personal history of COVID-19; Z90.09 Acquired absence of other part of head and neck; M48.062 Spinal stenosis, lumbar region with neurogenic claudication; Z92.3 Personal history of irradiation